=== PATIENT | male | born 1990 | race African-American/Black ===

== ENCOUNTER 2020-12-18 09:30 | Emergency (ER) | payer OTHER ==
[2020-12-18] MEDS ORDERED: SODIUM CHLORIDE 0.9% 1,000 ML IV STA (09:45)
--- NOTE | 2020-12-18 09:47 | ED Physician Documentation ---
PD HPI ABD PAIN - Stated complaint Stated Complaint: ABD PX - Chief complaint Chief Complaint: Abd Pain - History obtained from History obtained from: Patient - Additional information Additional information: Gentleman with history of remote appendectomy presents with 3 days of abdominal symptoms. Started on Wednesday, 3 days ago with vomiting and diarrhea and has had progressive diffuse epigastric and periumbilical pain ever since. The nausea and diarrhea have abated. No other history of abdominal surgeries other than the appendectomy. No sick contacts. Review of Systems Ten Systems: 10 systems reviewed and negative Constitutional: reports: Reviewed and negative Eyes: reports: Reviewed and negative Ears: reports: Reviewed and negative Nose: reports: Reviewed and negative PD PAST MEDICAL HISTORY - Past Medical History Past Medical History: No - Past Surgical History Past Surgical History: Yes General: Appendectomy - Present Medications Home Medications: Ambulatory Orders Medication Instructions Recorded Confirmed Dicyclomine [Bentyl] 1 - 2 tab PO QID PRN #20 cap 12/18/20 - Allergies Allergies/Adverse Reactions: Allergies Allergy/AdvReac Type Severity Reaction Status Date / Time No Known Drug Allergies Allergy Verified 12/18/20 09:34 - Social History Does the pt smoke?: No Smoking Status: Never smoker Does the pt drink ETOH?: Yes Does the pt have substance abuse?: No - Immunizations Immunizations are current?: Yes PD ED PE NORMAL - Vitals Vital signs reviewed: Yes - General General: Alert and oriented X 3, No acute distress - HEENT HEENT: PERRL, EOMI - Neck Neck: Supple, no meningeal sign, No bony TTP - Cardiac Cardiac: RRR, No murmur - Respiratory Respiratory: No respiratory distress, Clear bilaterally - Abdomen Abdomen: Normal bowel sounds, Soft, Other (Mild abdominal tenderness which is present generally on the right side and periumbilical areas, potentially most impressive in the right upper quadrant but still fairly benign.) - Back Back: No CVA TTP, No spinal TTP - Derm Derm: Normal color, Warm and dry - Extremities Extremities: No edema, No calf tenderness / cord - Neuro Neuro: Alert and oriented X 3, Normal speech Results - Vitals Vitals: Vital Signs - 24 hr 12/18/20 12/18/20 09:34 10:15 Temperature 36.4 C L Heart Rate 60 55 L Respiratory 16 16 Rate Blood Pressure 128/78 128/91 H O2 Saturation 100 100 Oxygen O2 Source Room air - Labs Labs: Laboratory Tests 12/18/20 12/18/20 12/18/20 10:00 10:00 10:00 WBC 4.3 L RBC 4.47 L Hgb 13.6 L Hct 40.9 L MCV 91.5 MCH 30.4 MCHC 33.3 RDW 12.6 Plt Count 210 MPV 9.7 Neut # (Auto) 2.4 Lymph # (Auto) 1.2 L [place] # (Auto) 0.5 Eos # (Auto) 0.1 Baso # (Auto) 0.0 Absolute Nucleated RBC 0.00 Nucleated RBC % 0.0 Sodium 139 Potassium 3.9 Chloride 103 Carbon Dioxide 27 Anion Gap 9.0 BUN 20 Creatinine 1.1 Estimated GFR (MDRD) 95 Glucose 90 Calcium 9.3 Total Bilirubin 1.1 H AST 17 ALT 14 Alkaline Phosphatase 67 Total Protein 8.0 Albumin 4.4 Globulin 3.6 Albumin/Globulin Ratio 1.2 Lipase 18 L Urine Color YELLOW Urine Clarity CLEAR Urine pH 5.5 Ur Specific [place] >=1.030 H Urine Protein NEGATIVE Urine Glucose (UA) NEGATIVE Urine Ketones NEGATIVE Urine Occult Blood NEGATIVE Urine Nitrite NEGATIVE Urine Bilirubin NEGATIVE Urine Urobilinogen 0.2 (NORMAL) Ur Leukocyte Esterase NEGATIVE Ur Microscopic Review NOT INDICATED Urine Culture Comments NOT INDICATED PD MEDICAL DECISION MAKING - ED course ED course: CT results discussed with patient's, I suspect he has an ileus after having gastroenteritis a few days ago. Clear liquid diet for the next 24 hours and then a NELLA was advised. Also discussed the incidental finding of potential terminal ileitis and discussed need for follow-up with PCP for referral for colonoscopy. Departure - Departure Disposition: 01 Home, Self Care Clinical Impression: Gastroenteritis Condition: Good Record reviewed to determine appropriate education?: Yes Instructions: ED Gastroenteritis Viral Prescriptions: Dicyclomine [Bentyl] 1 - 2 tab PO QID PRN #20 cap PRN Reason: Abdominal Pain Comments: As discussed, it sounds like you had a viral gastroenteritis and wanted to do a clear liquid diet for the next 24 hours, after that you can slowly go back to a normal diet. I have given you something for the cramping. You should avoid Imodium or any similar antidiarrheal medications. Your ileum also looks mildly inflamed on your CAT scan. Discuss this with your physician, I recommend referral for colonoscopy nonurgently. Return if worsening. Forms: Activity restrictions
[2020-12-18 10:15] LABS: BASOPHILS % (AUTO) 0.5 %; EOSINOPHILS # (AUTO) 0.1 10^3/uL (0.0-0.7); EOSINOPHILS % (AUTO) 1.6 %; HCT - HEMATOCRIT 40.9 % (42.0-52.0); HGB - HEMOGLOBIN 13.6 g/dL (14.0-18.0); LYMPHOCYTES # (AUTO) 1.2 10^3/uL (1.5-3.5); LYMPHOCYTES % (AUTO) 28.6 %; MEAN CORPUSCULAR HEMOGLOBIN 30.4 pg (27.0-31.0); MEAN CORPUSCULAR HGB CONC 33.3 g/dL (32.0-36.0); MEAN CORPUSCULAR VOLUME 91.5 fL (80.0-94.0); MEAN PLATELET VOLUME 9.7 fL (7.4-11.4); MONOCYTES # (AUTO) 0.5 10^3/uL (0.0-1.0); MONOCYTES % (AUTO) 12.4 %; NEUTROPHILS # (AUTO) 2.4 10^3/uL (1.5-6.6); NEUTROPHILS % (AUTO) 56.7 %; PLT - PLATELET COUNT 210 10^3/uL (130-450); RED BLOOD COUNT 4.47 10^6/uL (4.70-6.10); RED CELL DISTRIBUTION WIDTH 12.6 % (12.0-15.0); WHITE BLOOD COUNT 4.3 x10^3/uL (4.8-10.8)
[2020-12-18 10:19] LABS: BILIRUBIN,URINE NEGATIVE (NEGATIVE); GLUCOSE, URINE (UA) NEGATIVE (NEGATIVE); KETONES,URINE (UA) NEGATIVE (NEGATIVE); LEUKOCYTE ESTERASE, URINE NEGATIVE (NEGATIVE); NITRITE,URINE NEGATIVE (NEGATIVE); OCCULT BLOOD,URINE NEGATIVE (NEGATIVE); PH,URINE 5.5 PH (5.0-7.5); PROTEIN,URINE NEGATIVE (NEGATIVE); UROBILINOGEN,URINE 0.2 (NORMAL) E.U./dL (NORMAL)
[2020-12-18 10:28] LABS: ALBUMIN 4.4 g/dL (3.2-5.5); ALBUMIN/GLOBULIN RATIO 1.2 (1.0-2.2); BILIRUBIN,TOTAL 1.1 mg/dL (0.2-1.0); CALCIUM 9.3 mg/dL (8.5-10.3); CREATININE 1.1 mg/dL (0.6-1.2); POTASSIUM 3.9 mmol/L (3.5-5.0)
[2020-12-18] MEDS ORDERED: IOPAMIDOL-300 100 ML VIAL ONE (10:39)
[2020-12-18 10:40] LABS: CLARITY,URINE CLEAR (CLEAR)
--- NOTE | 2020-12-18 11:16 | CT Report ---
PROCEDURE: Abdomen/Pelvis W INDICATIONS: IV only , abd pain CONTRAST: IV CONTRAST: Isovue 300 ml: 100 PO CONTRAST: *NO PO CONTRAST TECHNIQUE: After the administration of IV contrast, 5 mm thick sections acquired from the diaphragms to the symp hysis. 5 mm thick coronal and sagittal reformats were acquired. For radiation dose reduction, the f ollowing was used: automated exposure control, adjustment of mA and/or kV according to patient size. COMPARISON: None. FINDINGS: Image quality: Excellent. ABDOMEN: Lung bases: Lung bases are clear. Heart size is normal. Solid organs: Liver and spleen are normal in size and enhancement. Gallbladder wall does not appear thickened. Biliary system is non dilated. Pancreas enhances normally. No adrenal nodules. Kidn eys demonstrate normal size and enhancement, without hydronephrosis. Peritoneum and bowel: Dilatation of small bowel loops can be seen, which measure up to 3.5 cm. Severa l areas of forming stool can be seen within the small bowel. There is a transition point. The termina l ileum demonstrates abnormal wall thickening and hyperenhancement, as seen on series 6 image 22. The re is a mild to moderate amount of free fluid seen layering within the pelvis. No free air is seen. N o significant colonic abnormality is seen. Appendectomy changes are seen. Nodes and vessels: No retroperitoneal or mesenteric adenopathy by size criteria. Aorta and inferior vena cava are normal in size. Miscellaneous: No ventral hernias. PELVIS: Genitourinary: Bladder wall thickness is normal. Miscellaneous: No inguinal hernias or adenopathy. Bones: No suspicious bony lesions. No vertebral body compression fractures. IMPRESSION: Abnormal small bowel, which is fluid distended, with loops measuring up to 3.5 cm. There is no transi tion point seen. Ileus is suspected. Several areas of forming stool can be seen within the small bowel, which is consistent with stagnant small bowel contents. The distal terminal ileum demonstrates wall thickening and hyperenhancement. Please consider Crohn's disease. A mild to moderate amount of layering free fluid can be seen within the pelvis. Incidental note is made of: Appendectomy Reviewed by: Juan M Montoya MD on 12/18/2020 10:14 AM RICH Approved by: Juan M Montoya MD on 12/18/2020 10:14 AM [email or web address] Station ID: [id number]
[2020-12-18 11:51] VITALS: BP 126/85
[2020-12-18] MEDS ORDERED: IOPAMIDOL-300 100 ML VIAL IVP ONE (13:33)
== END 2020-12-18 12:09 | disposition home or self-care (01) ==
LOC: ED 09:30
DX: K52.9 Noninfective gastroenteritis and colitis, unspecified (principal)
CPT/HCPCS: 36415; 74177; 80053; 81003; 83690; 85025; 99284; Q9967; 81001; 87086